=== PATIENT | male | born 1985 | race Two or more races ===

== ENCOUNTER → 2018-05-05 | Outpatient (REF) | payer OTHER ==
[~2018-05-05] MED LIST: SERT-1 PO
[2018-05-05 17:21] LABS: PLATELET COUNT, AUTOMATED 246 K/uL (150-450)
== END ==
PROVIDERS: ATTEND Nurse Practitioner Family
DX: R10.9 Unspecified abdominal pain (principal)
CPT/HCPCS: 82040; 82150; 82247; 82310; 82374; 82435; 82565; 82947; 83690; 84075; 84132; 84155; 84295; 84450; 84460; 84520; 85025

== ENCOUNTER 2018-08-14 15:51 | Inpatient (IN) | payer OTHER ==
[2018-05-06 11:21] VITALS: Ht 182.9 cm; Wt 90.3 kg
[~2018-08-14] VITALS: Ht 182.9 cm; Wt 90.3 kg
[~2018-08-14 15:51] MED LIST changes: +LOR5/325 PO
--- NOTE | 2018-08-14 15:53 | ER Report ---
History and Physical Time Seen By MD: 15:52 HPI/ROS CHIEF COMPLAINT: Mid epigastric abdominal pain HISTORY OF PRESENT ILLNESS: Patient is a 33-year-old male here with complaints of midepigastric abdominal pain, nausea, shakiness, lightheadedness starting this morning around breakfast time after eating Cheetos. Patient had his 1st episode of emesis while in the emergency department. 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 Patient does have significant tenderness on palpation of the midepigastrium. Patient has been passing normal bowel movements, denies fevers, chest pain, shortness breath. Upon further questioning, patient was unable to quantify how much alcohol he consumes however he does preferentially drink vodka regularly. Denies blood in the urine or stools. REVIEW OF SYSTEMS: Constitutional: No fever, no chills. Eyes: No discharge. ENT: No sore throat. Cardiovascular: No chest pain, no palpitations. Respiratory: No cough, no shortness of breath. Gastrointestinal: + Mid epigastric abdominal pain, no rigidity or significant distention, + nausea and one episode of vomiting. Genitourinary: No hematuria. Musculoskeletal: No back pain. Skin: No rashes. Neurological: No headache. Allergies: Coded Allergies: No Known Drug Allergies (Unverified , 05/05/18) Home Meds Reported Medications Sertraline Hcl (ZOLOFT) 50 Mg Tablet, 2 TAB PO QDAY, TAB 05/05/18 Hx Smoking: No Smoking Status: Light Tobacco Smoker Exposure to Second Hand Smoke?: No Hx Substance Use Disorder: No Hx Alcohol Use: Yes Constitutional Vital Sign - Last 24 Hours 08/14/18 16:01 Pulse 69 Resp 18 Pulse Ox 98 O2 Delivery Room Air Physical Exam General Appearance: The patient is alert, has no immediate need for airway protection and no signs of toxicity. Uncomfortable appearing, moderate distress secondary to pain and nausea Eyes: Pupils equal and round no pallor or injection. ENT, Mouth: Mucous membranes are moist. Respiratory: There are no retractions, lungs are clear to auscultation. Cardiovascular: Regular rate and rhythm. Gastrointestinal: Abdomen is soft and+ significantly tender on palpation of the midepigastrium, no masses, bowel sounds normal. Neurological: No focal neurological deficits on examination Skin: Warm and dry, no rashes. Musculoskeletal: Neck is supple non tender. Extremities are nontender, nonswollen and have full range of motion. DIFFERENTIAL DIAGNOSIS: After history and physical exam differential diagnosis was considered for abdominal pain including but not limited to appendicitis, cholecystitis, gastritis and urinary tract infection. Pancreatitis Medical Decision Making Data Points Result Diagram: 08/14/18 1615 08/14/18 1615 Laboratory Hematology Test 08/14/18 15:58 08/14/18 16:15 Urine Color Yellow Urine Clarity Clear Urine pH 6.0 pH (4.8-9.5) Urine Specific Fraser 1.011 Urine Protein Negative mg/dL (NEGATIVE) Urine Glucose (UA) Negative mg/dL (NEGATIVE) Urine Ketones Negative mg/dL (NEGATIVE) Urine Blood Negative (NEGATIVE) Urine Nitrite Negative (NEGATIVE) Urine Bilirubin Negative (NEGATIVE) Urine Urobilinogen Negative mg/dL (0.2-1.9) Urine Leukocyte Esterase Negative (NEGATIVE) Urine RBC None /HPF (0-2/HPF) Urine WBC <1 /HPF (0-5/HPF) Urine Squamous Epithelial Cells None /LPF (</=FEW) Urine Bacteria Negative /HPF (NONE-FEW) Urine Mucus None /HPF (NONE-FEW) Red Blood Count 5.68 M/uL (4.00-5.60) Mean Corpuscular Volume 89.1 fL (80.0-96.0) Mean Corpuscular Hemoglobin 31.3 pg (26.0-33.0) Mean Corpuscular Hemoglobin Concent 35.1 g/dL (32.0-36.0) Red Cell Distribution Width 14.1 % (11.5-14.5) Mean Platelet Volume 7.5 fL (7.2-11.1) Neutrophils (%) (Auto) 78.9 % (39.4-72.5) Lymphocytes (%) (Auto) 14.0 % (17.6-49.6) Monocytes (%) (Auto) 6.0 % (4.1-12.4) Eosinophils (%) (Auto) 0.4 % (0.4-6.7) Basophils (%) (Auto) 0.7 % (0.3-1.4) Nucleated RBC Relative Count (auto) 0.0 /100WBC Neutrophils # (Auto) 6.5 K/uL (2.0-7.4) Lymphocytes # (Auto) 1.1 K/uL (1.3-3.6) Monocytes # (Auto) 0.5 K/uL (0.3-1.0) Eosinophils # (Auto) 0.0 K/uL (0.0-0.5) Basophils # (Auto) 0.1 K/uL (0.0-0.1) Nucleated RBC Absolute Count (auto) 0.00 K/uL Sodium Level 139 mmol/L (137-145) Potassium Level 3.2 mmol/L (3.5-5.0) Chloride Level 105 mmol/L (98-107) Carbon Dioxide Level 21 mmol/L (22-30) Blood Urea Nitrogen 9 mg/dl (9-21) Creatinine 1.00 mg/dl (0.66-1.25) Glomerular Filtration Rate Calc > 60.0 Random Glucose 135 mg/dl (75-110) Lactate 4.0 mmol/L (0.7-2.1) Calcium Level 9.8 mg/dl (8.4-10.2) Total Bilirubin 0.9 mg/dl (0.2-1.3) Aspartate Amino Transf (AST/SGOT) 26 U/L (0-35) Alanine Aminotransferase (ALT/SGPT) 32 U/L (0-56) Alkaline Phosphatase 77 U/L (0-126) Total Protein 7.9 g/dl (6.3-8.2) Albumin 5.0 g/dl (3.5-5.0) Lipase 3535 U/L (23-300) Chemistry Test 08/14/18 15:58 08/14/18 16:15 Urine Color Yellow Urine Clarity Clear Urine pH 6.0 pH (4.8-9.5) Urine Specific Fraser 1.011 Urine Protein Negative mg/dL (NEGATIVE) Urine Glucose (UA) Negative mg/dL (NEGATIVE) Urine Ketones Negative mg/dL (NEGATIVE) Urine Blood Negative (NEGATIVE) Urine Nitrite Negative (NEGATIVE) Urine Bilirubin Negative (NEGATIVE) Urine Urobilinogen Negative mg/dL (0.2-1.9) Urine Leukocyte Esterase Negative (NEGATIVE) Urine RBC None /HPF (0-2/HPF) Urine WBC <1 /HPF (0-5/HPF) Urine Squamous Epithelial Cells None /LPF (</=FEW) Urine Bacteria Negative /HPF (NONE-FEW) Urine Mucus None /HPF (NONE-FEW) White Blood Count 8.2 k/uL (4.5-11.0) Red Blood Count 5.68 M/uL (4.00-5.60) Hemoglobin 17.8 g/dL (14.0-18.0) Hematocrit 50.6 % (42.0-52.0) Mean Corpuscular Volume 89.1 fL (80.0-96.0) Mean Corpuscular Hemoglobin 31.3 pg (26.0-33.0) Mean Corpuscular Hemoglobin Concent 35.1 g/dL (32.0-36.0) Red Cell Distribution Width 14.1 % (11.5-14.5) Platelet Count 324 K/uL (150-450) Mean Platelet Volume 7.5 fL (7.2-11.1) Neutrophils (%) (Auto) 78.9 % (39.4-72.5) Lymphocytes (%) (Auto) 14.0 % (17.6-49.6) Monocytes (%) (Auto) 6.0 % (4.1-12.4) Eosinophils (%) (Auto) 0.4 % (0.4-6.7) Basophils (%) (Auto) 0.7 % (0.3-1.4) Nucleated RBC Relative Count (auto) 0.0 /100WBC Neutrophils # (Auto) 6.5 K/uL (2.0-7.4) Lymphocytes # (Auto) 1.1 K/uL (1.3-3.6) Monocytes # (Auto) 0.5 K/uL (0.3-1.0) Eosinophils # (Auto) 0.0 K/uL (0.0-0.5) Basophils # (Auto) 0.1 K/uL (0.0-0.1) Nucleated RBC Absolute Count (auto) 0.00 K/uL Glomerular Filtration Rate Calc > 60.0 Lactate 4.0 mmol/L (0.7-2.1) Calcium Level 9.8 mg/dl (8.4-10.2) Total Bilirubin 0.9 mg/dl (0.2-1.3) Aspartate Amino Transf (AST/SGOT) 26 U/L (0-35) Alanine Aminotransferase (ALT/SGPT) 32 U/L (0-56) Alkaline Phosphatase 77 U/L (0-126) Total Protein 7.9 g/dl (6.3-8.2) Albumin 5.0 g/dl (3.5-5.0) Lipase 3535 U/L (23-300) Urinalysis Test 08/14/18 15:58 Urine Color Yellow Urine Clarity Clear Urine pH 6.0 pH (4.8-9.5) Urine Specific Fraser 1.011 Urine Protein Negative mg/dL (NEGATIVE) Urine Glucose (UA) Negative mg/dL (NEGATIVE) Urine Ketones Negative mg/dL (NEGATIVE) Urine Blood Negative (NEGATIVE) Urine Nitrite Negative (NEGATIVE) Urine Bilirubin Negative (NEGATIVE) Urine Urobilinogen Negative mg/dL (0.2-1.9) Urine Leukocyte Esterase Negative (NEGATIVE) Urine RBC None /HPF (0-2/HPF) Urine WBC <1 /HPF (0-5/HPF) Urine Squamous Epithelial Cells None /LPF (</=FEW) Urine Bacteria Negative /HPF (NONE-FEW) Urine Mucus None /HPF (NONE-FEW) EKG/Imaging Imaging PATIENT NAME: Bk Morales : 1985 MR: [id number] V: [id number] EXAM DATE: [id number] ORDERING PHYSICIAN: URSULA JEREZ TECHNOLOGIST: Location: [facility] - [place] Patient: Bk Morales : 1985 Visit/Account:[id number] Date of Sevice: 08/14/2018 CT ABDOMEN PELVIS W/ CON HISTORY: epigastric abd pain TECHNIQUE: CT abdomen and pelvis with intravenous contrast. One of the following dose optimization techniques was utilized in the p erformance of this exam: Automated exposure control; adjustment of the mA and/or kV according to the patient's size; or use of an iterative reconstruction technique. Specific details can be referenced in the facility's radiology CT exam operational policy. CONTRAST: 85 mL Isovue-370. COMPARISON: May 05, 2018. FINDINGS: Visualized lung bases: Negative. Hepatobiliary: Suggestion of hepatic steatosis. Otherwise negative. Spleen: Negative. Adrenals: Negative. Pancreas: Moderate peripancreatic inflammation. No definitive evidence for pancreatic necrosis. No focal fluid collections. No vascular complications identified. Kidneys/: Negative. GI: Mild chronic appearing fat attenuation within the colon which is likely related to remote infectious/inflammatory process. Otherwise negative. Appendix is unremarkable. No evidence for obstruction. Vessels/spaces/nodes: Negative. Bones/soft tissues: Negative. IMPRESSION: 1. Acute pancreatitis with moderate peripancreatic inflammation. No focal fluid collections or other complications of pancreatitis identified at this time. 2. Additional incidental/chronic findings, as above. ED Course/Re-evaluation ED Course Patient is a 33-year-old male here with complaints of midepigastric abdominal pain, nausea, emesis 1 episode, starting this morning around breakfast time af ter eating Cheetos. Patient does consume vodka regularly and has had prior episodes of alcohol-induced pancreatitis. CT imaging of the abdomen and pelvis was obtained and patient was given normal saline bolus, GI cocktail, fentanyl, Zofran. CT of the abdomen and pelvis showed inflammation and inflammatory changes around the pancreas but did not show signs of abscess, necrosis. Lipase came back at 3535, lactate was 4.0. Patient was given ketamine and Dilaudid and a repeat dose of Zofran for symptomatic management. Patient was given 2nd liter of normal saline for hydration. I discussed the patient with Dr. Hauser who evaluated the patient for inpatient admission. Patient remained hemodynamically stable throughout course. Decision to Disposition Date: Aug 14, 2018 Decision to Disposition Time: 17:28 Depart Departure Latest Vital Signs Vital Signs Date Time Temp Pulse Resp B/P (MAP) Pulse Ox O2 Delivery O2 Flow Rate FiO2 08/14/18 16:01 69 18 98 Room Air Impression: Primary Impression: Acute alcoholic pancreatitis Condition: Condition Unchanged Disposition: Admitted from ER URSULA JEREZ DO Aug 14, 2018 15:53
[2018-08-14] MEDS ORDERED: NS(*) 0.9% 1000 ML BAG 1,000 ML IV ONE ×2 (16:09→16:40)
[2018-08-14] MEDS ORDERED: fentaNYL CITR 100 MCG/2 ML AMP IVP ONE (16:10)
[2018-08-14] MEDS ORDERED: MAG HYD/AL HYD/SIMETH 30ML UDC PO ONE (16:10)
[2018-08-14] MEDS ORDERED: LIDOCAINE 2% VISC SLN 15ML UDC PO ONE (16:10)
[2018-08-14] MEDS ORDERED: ONDANSETRON 4 MG/2 ML VIAL IVP ONE ×2 (16:10→17:25)
[2018-08-14 16:27] LABS: PLATELET COUNT, AUTOMATED 324 K/uL (150-450)
[2018-08-14] MEDS ORDERED: IOPAMIDOL 76% 150 ML INFUS BTL 150 ML ONE (16:29)
[2018-08-14] MEDS ORDERED: KETAMINE HCL-NS 50 MG/5 ML SYR IVP ONE (16:50)
--- NOTE | 2018-08-14 17:03 | RADIOLOGY IMAGING REPORT ---
FACILITY: [facility] - [place] PATIENT NAME: Bk Morales : 1985 MR: [id number] V: [id number] EXAM DATE: ORDERING PHYSICIAN: URSULA JEREZ TECHNOLOGIST: Location: [facility] - [place] Patient: Bk Morales : 1985 Visit/Account:[id number] Date of Sevice: 08/14/2018 CT ABDOMEN PELVIS W/ CON HISTORY: epigastric abd pain TECHNIQUE: CT abdomen and pelvis with intravenous contrast. One of the following dose optimization techniques was utilized in the performance of this exam: Autom ated exposure control; adjustment of the mA and/or kV according to the patient's size; or use of an i terative reconstruction technique. Specific details can be referenced in the facility's radiology C T exam operational policy. CONTRAST: 85 mL Isovue-370. COMPARISON: May 05, 2018. FINDINGS: Visualized lung bases: Negative. Hepatobiliary: Suggestion of hepatic steatosis. Otherwise negative. Spleen: Negative. Adrenals: Negative. Pancreas: Moderate peripancreatic inflammation. No definitive evidence for pancreatic necrosis. No f ocal fluid collections. No vascular complications identified. Kidneys/: Negative. GI: Mild chronic appearing fat attenuation within the colon which is likely related to remote infect ious/inflammatory process. Otherwise negative. Appendix is unremarkable. No evidence for obstruction . Vessels/spaces/nodes: Negative. Bones/soft tissues: Negative. IMPRESSION: 1. Acute pancreatitis with moderate peripancreatic inflammation. No focal fluid collections or other complications of pancreatitis identified at this time. 2. Additional incidental/chronic findings, as above. Report Dictated By: León Alston MD at 08/14/2018 4:57 PM Report E-Signed By: León Alston MD at 08/14/2018 4:59 PM WSN:[id number]
[2018-08-14] MEDS ORDERED: HYDROMORPHONE HCL 1 MG/ML SYRINGE IVP ONE ×2 (17:20→18:35)
[2018-08-14] MEDS ORDERED: LORazepam 1 MG TAB PO PRN (18:00)
[2018-08-14] MEDS ORDERED: NALOXONE HCL 0.4 MG/ML VIAL IVP PRN (18:00)
[2018-08-14] MEDS ORDERED: LORazepam 2 MG/ML VIAL IVP PRN ×2 (18:00)
--- NOTE | 2018-08-14 18:23 | History & Physical ---
History of Present Illness History of Present Illness 33yo male with a h/o alcohol induced pancreatitis who came to the ER for abdominal pain and nausea. He was in his normal state of health until he woke up today. It was about noon. He felt a bit off. He ate some food and then developed sharp epigastric pain that ranged from 6-9/10. He also noted tingling in his face and cramping in his hands that possibly worsened with inflation of the BP cuff. He didn't vomit until coming to the ER. There was no blood or coffee ground substance. He denies f/c. He drinks about a half bottle of vodka a day. He denies seizures or DT's when he stops drinking. He was last in the hospital a couple months ago for a very similar presentation and had pancreatitis. He did not go through significant alcohol withdrawal then (i.e. no benzodiazepines used). He denies any prescription, OTC drugs, or supplements. He does chew tobacco. History Problems: (1) Alcohol use Status: Chronic (2) Depression Status: Chronic Home Meds Reported Medications Sertraline Hcl (ZOLOFT) 50 Mg Tablet, 2 TAB PO QDAY, TAB 05/05/18 Allergies: Coded Allergies: No Known Drug Allergies (Unverified , 05/05/18) Other Social/Family Hx He is a cook at the [employer]. Hx Smoking: No Smoking Status: Light Tobacco Smoker Exposure to Second Hand Smoke?: No Hx Alcohol Use: Yes ("TOO MUCH") Hx Substance Use Disorder: No Social Drug Use: Never Review of Systems All Systems Reviewed/Normal: Yes, Except as Noted Exam Vital Signs Vital Signs Date Time Temp Pulse Resp B/P (MAP) Pulse Ox O2 Delivery O2 Flow Rate FiO2 08/14/18 16:01 69 18 98 Room Air General Appearance: Alert, Awake, No Acute Distress Neuro: Other (Answers questions appropriately, but is a bit slow to answer sometimes) Eyes: PERRLA ENT: Moist Mucous Membranes Cardiovascular: Regular Rate and Rhythm Respiratory: Clear to Auscultation GI: Other (Soft, non-distended, epigastric pain with palpation.) Extremities: No Edema Integumentary: No Jaundice, No Cyanosis Medical Decision Making Data Points Result Diagram: 08/14/18 1615 08/14/18 1615 Item Value Date Time Lactate 4.0 mmol/L *H 08/14/18 1615 Aspartate Amino Transf (AST/SGOT) 26 U/L 08/14/18 1615 Total Bilirubin 0.9 mg/dl 08/14/18 1615 Alanine Aminotransferase (ALT/SGPT) 32 U/L 08/14/18 1615 Alkaline Phosphatase 77 U/L 08/14/18 1615 Lipase 3535 U/L H 08/14/18 1615 Neutrophils (%) (Auto) 78.9 % H 08/14/18 1615 Lymphocytes (%) (Auto) 14.0 % L 08/14/18 1615 Mean Corpuscular Volume 89.1 fL 08/14/18 1615 Urine RBC None /HPF 08/14/18 1558 Urine WBC <1 /HPF 08/14/18 1558 EKG / Imaging Imaging CT abd/pelvis - 1. Acute pancreatitis with moderate peripancreatic inflammation. No focal fluid collections or other complications of pancreatitis identified at this time. 2. Additional incidental/chronic findings, as above. Assessment and Plan Problems: (1) Acute alcoholic pancreatitis Status: Acute Assessment & Plan: He presented with a couple of hours of acute epigastric abdominal pain and nausea. His lipase is 3535 and has evidence of moderate pancreatic inflammation on CT. He will be made NPO hydrated, started on a morphine RAISE MINER, and given prn IV Toradol. Will follow lipase/liver tests/calcium (complained of symptoms consistent with low calcium, but calcium is normal). (2) Alcohol use Status: Chronic Assessment & Plan: He denies a h/o withdrawal seizures or DT's. He drinks 1/2 bottle of vodka/day. Seizure precautions implemented. CIWA protocol with IV Ativan started and prn Ativan ordered. Start IV thiamine and folate. (3) Hypokalemia Status: Acute Assessment & Plan: Mild. Replace. Follow. Check Mg. Venous Thromboembolism Antithrombotics Is Pt On Any Antithrombotics?: No Exam Sepsis Risk: No Definite Risk ALEXANDER WATERS MD Aug 14, 2018 18:23
[2018-08-14] MEDS ORDERED: PROMETHAZINE 25 MG/ML 1 ML AMP IVP ONE (18:35)
[2018-08-14] MEDS ORDERED: PCA LOCKBOX KEYS XX PRN (19:20)
[2018-08-14 19:30] VITALS: BP 128/68
[2018-08-14] MEDS: NS(*) 0.9% 1000 ML BAG 1,000 ML IV PRN (19:49)
[2018-08-14] MEDS: MORPHINE 1 MG/ML 30 ML PCA IV PRN (19:49)
[2018-08-14] MEDS: PANTOPRAZOLE SOD 40 MG IV VIAL IVP SCH (19:53)
[2018-08-14 20:00] VITALS: BP 143/95
[2018-08-14] MEDS: KCL (*) 20 MEQ/100 ML PREMIX 100 ML IV SCH ×2 (20:06→22:16)
[2018-08-14] MEDS: PROMETHAZINE 25 MG/ML 1 ML AMP IVP PRN (20:06)
[2018-08-14 20:30] VITALS: BP 149/96
[2018-08-14 21:00] VITALS: BP 137/93
[2018-08-14] MEDS: KETOROLAC 15 MG/ML VIAL IVP PRN (22:17)
[2018-08-15] VITALS (7 sets, daily range): BP systolic 127–153; BP diastolic 66–90
[2018-08-15] MEDS: MORPHINE 1 MG/ML 30 ML PCA IV PRN ×3 (02:30→21:55)
[2018-08-15] MEDS: NS(*) 0.9% 1000 ML BAG 1,000 ML IV PRN ×2 (05:53→16:17)
[2018-08-15 06:06] LABS: INR 1.05
[2018-08-15 06:15] LABS: PLATELET COUNT, AUTOMATED 261 K/uL (150-450)
[2018-08-15] MEDS ORDERED: FOLIC ACID 50 MG/10 ML 1ML INJ IV SCH (09:00)
[2018-08-15] MEDS: PANTOPRAZOLE SOD 40 MG IV VIAL IVP SCH (09:46)
[2018-08-15] MEDS: ENOXAPARIN 40 MG/0.4ML SYR SC SCH (09:48)
[2018-08-15] MEDS: THIAMINE HCL 200 MG/2 ML INJ IVP SCH (09:51)
[2018-08-15] MEDS: FOLIC ACID(*) 50 MG/10 ML INJ 1 MG in NS(*) 0.9% 50 ML BAG 50 ML IV SCH (09:53)
--- NOTE | 2018-08-15 10:28 | Hospitalist Progress Note ---
Subjective Progress Notes Subjective He was admitted with pancreatitis. 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 He has no nausea or vomiting since admission. His Lipase increased this morning. Patient Complains of: Cardiovascular: No: Chest Pain Respiratory: No: Shortness of Breath Gastrointestinal: No Nausea, No Vomiting Physical Exam Vital Signs Date Time Temp Pulse Resp B/P (MAP) Pulse Ox O2 Delivery O2 Flow Rate FiO2 08/15/18 09:17 88 Room Air 08/15/18 08:51 20 08/15/18 07:03 99.0 80 135/81 (99) 08/15/18 05:24 0.5 Intake and Output 08/15/18 07:00 Intake Total 1200 ml Balance 1200 ml Intake IV Total 1200 ml # Voids 1 General Appearance: Alert, Awake, No Acute Distress, Afebrile Neuro: No Gross deficits Cardiovascular: Regular Rate and Rhythm Respiratory: No Respiratory Distress, Clear to Auscultation GI: Other (pain to palpation of abdomen) Extremities: Warm, Perfused; No Edema Psych: Alert & Oriented X3, Appropriate Mood & Affect Result Diagram: 08/15/1836 08/15/1836 Assessment and Plan Problems: (1) Acute alcoholic pancreatitis Status: Acute Assessment & Plan: He presented with a couple of hours of acute epigastric abdominal pain and nausea. His lipase was 3535 upon admission and had evidence of moderate pancreatic inflammation on CT. He was made NPO hydrated, started on a morphine [employer] SUPERVISOR, and given prn IV Toradol. Lipase increased this morning. Continue current treatment plan. Recheck labs tomorrow morning. (2) Alcohol use Status: Chronic Assessment & Plan: He denies a h/o withdrawal seizures or DT's. He drinks 1/2 bottle of vodka/day. Seizure precautions implemented. CIWA protocol with IV Ativan started and prn Ativan ordered. Start IV thiamine and folate. Patient d enies alcohol counseling information at this time. (3) Hypokalemia Status: Acute Assessment & Plan: Mild. Replace. Follow. Magnesium normal. Exam Sepsis Risk: No Definite Risk MATTHIAS SERRA Aug 15, 2018 10:28
--- NOTE | 2018-08-15 15:16 | Medical Nutrition Therapy ---
Nutrition Anthropometrics Height (Inches): 72 Weight (Pounds): 196 Weight (Calculated Kilograms): 88.904 BMI: 26.9 Adarsh Nutrition Score: Very Poor Adarsh Nutrition Risk Score: 20 Dietary Referral Nutrition Risk Factors: Nutrition Risk Comment: Physical Findings Physical Appearance: Overweight BMI 25-29 Skin Appearance Skin Appearance: Edema Edema Location Modifier: Edema Location: Type of Edema: Degree of Edema: Gastrointestinal Symptoms GI Symtoms: Tube Present: Bowel Sounds: Recent Bowel Pattern: Stool Characteristics: Nutritional Diagnosis Nutritional Risk Acuity 2: Pancreatitis Nutritional Risk Acuity 3: Nausea Past Medical History: alcohol abuse, depression Nutritional Acuity: 2-Moderate Nutrition Diagnosis: Inadequate Food Intake Nutrition Etiology: Physiological Causes Nutrition Problem/Etiology/Sym: Inadequate food intake related to physiological causes as evidenced by current NPO diet, day 1. Energy Requirement: 2465 (MSJ, 1.1 TEF, 1.2 AF) Adjusted Energy Requirement Re: 2215 (-250kcal) Protein Requirement: 89 (1g AA/kg of BW) Fluid Requirement: 2215 (1ml/kcal) Diet Type: NPO (Nothing by Mouth) Nutrition Intervention: Incr diet as tolerated Diet Comment To RSA: 08/15: NPO day 1 Nutrition Monitoring & Eval Nutrition Monitorin/1: NPO day 1 RD Patient Assessment Time: [address] Assessment Type: RD Assessment Patient Nutrition Acuity: 2-Moderate Follow Up Date: Aug 18, 2018 Nutritional Comment: 08/15: Pt admitted for alcohol use, hypokalemia, and acute alcoholic pancreatitis. Pt has hx of alcohol use and depression. Pt has decreased total protein (6.2), potssium (3.2), CO2 (21) levels. Pt has elevated RBG (135), lactate (4.0), and lipase (4310-9367) levels. Pt is currently taking enoxaparin. No ht reported for pt at this time, energy needs calculated using past admission's height. Pt is on NPO diet day 1,continue to monitor. -ANDREW CALDERON Aug 15, 2018 08:53
[2018-08-15] MEDS: KETOROLAC 15 MG/ML VIAL IVP PRN (19:56)
[2018-08-16] MEDS: NS(*) 0.9% 1000 ML BAG 1,000 ML IV PRN (01:52)
[2018-08-16 03:15] VITALS: BP 126/71
[2018-08-16] MEDS: KETOROLAC 15 MG/ML VIAL IVP PRN ×2 (03:27→12:06)
[2018-08-16 06:00] LABS: PLATELET COUNT, AUTOMATED 193 K/uL (150-450)
[2018-08-16 06:57] VITALS: BP 127/74
[2018-08-16] MEDS: ENOXAPARIN 40 MG/0.4ML SYR SC SCH (09:32)
[2018-08-16] MEDS: FOLIC ACID(*) 50 MG/10 ML INJ 1 MG in NS(*) 0.9% 50 ML BAG 50 ML IV SCH (09:32)
[2018-08-16] MEDS: PANTOPRAZOLE SOD 40 MG IV VIAL IVP SCH (09:32)
[2018-08-16] MEDS: THIAMINE HCL 200 MG/2 ML INJ IVP SCH (09:33)
[2018-08-16] MEDS: D5NS(*) 1000 ML BAG 1,000 ML IV PRN ×2 (10:00→20:50)
[2018-08-16 11:03] VITALS: BP 134/79
--- NOTE | 2018-08-16 11:08 | Hospitalist Progress Note ---
Subjective Progress Notes Subjective He has complaints of abdominal pain. Denies N/V. Patient Complains of: Cardiovascular: No: Chest Pain Respiratory: No: Shortness of Breath Physical Exam Vital Signs Date Time Temp Pulse Resp B/P (MAP) Pulse Ox O2 Delivery O2 Flow Rate FiO2 08/16/18 09:43 24 94 08/16/18 07:35 Room Air 08/16/18 06:57 99.1 77 127/74 (91) 08/16/18 03:15 0.5 Intake and Output 08/16/18 07:00 Intake Total 1000 ml Balance 1000 ml Intake IV Total 1000 ml # Voids 2 General Appearance: Alert, Awake, No Acute Distress, Afebrile Neuro: No Gross deficits Cardiovascular: Regular Rate and Rhythm Respiratory: No Respiratory Distress, Clear to Auscultation GI: Other (pain to palpation, abdomen slightly distended) Psych: Alert & Oriented X3, Appropriate Mood & Affect Result Diagram: 08/16/18 0537 08/16/1837 Assessment and Plan Problems: (1) Acute alcoholic pancreatitis Status: Acute Assessment & Plan: He presented with a couple of hours of acute epigastric abdominal pain and nausea. His lipase was 3535 upon admission and had evidence of moderate pancreatic inflammation on CT. 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 Lipase decreased this morning, but has continued pain. Continue current treatment plan. Recheck labs tomorrow morning. Will switch to D5NS to help with decreased glucose levels. (2) Alcohol use Status: Chronic Assessment & Plan: He denies a h/o withdrawal seizures or DT's. He drinks 1/2 bottle of vodka/day. Seizure precautions implemented. CIWA protocol with IV Ativan started and prn Ativan ordered. Start IV thiamine and folate. Patient denies alcohol counseling information at this time. (3) Hypokalemia Status: Acute Assessment & Plan: Mild. Replace. Follow. Magnesium normal. Exam Sepsis Risk: No Definite Risk MATTHIAS SERRA ASSISTANT SUPERINTENDENT Aug 16, 2018 11:08
[2018-08-16] MEDS: MORPHINE 1 MG/ML 30 ML PCA IV PRN (14:32)
[2018-08-16 14:34] VITALS: BP 127/79
[2018-08-16 18:57] VITALS: BP 141/91
[2018-08-16 23:02] VITALS: BP 139/90
[2018-08-17] MEDS: MORPHINE 1 MG/ML 30 ML PCA IV PRN (02:02)
[2018-08-17 03:00] VITALS: BP 143/89
[2018-08-17] MEDS: PROMETHAZINE 25 MG/ML 1 ML AMP IVP PRN (04:07)
[2018-08-17 05:54] LABS: PLATELET COUNT, AUTOMATED 171 K/uL (150-450)
[2018-08-17] MEDS: D5NS(*) 1000 ML BAG 1,000 ML IV PRN (06:23)
[2018-08-17 07:14] VITALS: BP 142/88
[2018-08-17] MEDS ORDERED: APAP/HYDROCODONE 325/5 TAB PO PRN (07:55)
[2018-08-17] MEDS: THIAMINE HCL 200 MG/2 ML INJ IVP SCH (09:27)
[2018-08-17] MEDS: PANTOPRAZOLE SOD 40 MG IV VIAL IVP SCH (09:27)
[2018-08-17] MEDS: ENOXAPARIN 40 MG/0.4ML SYR SC SCH (09:28)
[2018-08-17] MEDS: FOLIC ACID(*) 50 MG/10 ML INJ 1 MG in NS(*) 0.9% 50 ML BAG 50 ML IV SCH (09:28)
[2018-08-17] MEDS ORDERED: ONDA4TAB9 PO (12:43)
[2018-08-17] MEDS ORDERED: LOR5/325 PO (12:43)
--- NOTE | 2018-08-17 12:47 | Hospitalist Depart ---
Discharge Summary Reason for Hosp/Final Diag: (1) Acute alcoholic pancreatitis Status: Acute Hospital Course & Plan: He presented with a couple of hours of acute epigastric abdominal pain and nausea. His lipase was 3535 upon admission and had evidence of moderate pancreatic inflammation on CT. He was made NPO hydrated, started on a morphine [employer]IC, and given prn IV Toradol. Lipase decreased this morning to 565, and he denies pain to abdomen. He was transitioned to oral pain medication and has been able to tolerate clear liquid diet. Patient wants to go home at this time and feels he will be successful. He does not wish to stay another night in hospital. He was educated to eat only low fat diet and abstain from alcohol to be successful. (2) Alcohol use Status: Chronic Hospital Course & Plan: He denies a h/o withdrawal seizures or DT's. He drinks 1/2 bottle of vodka/day. Seizure precautions implemented. CIWA protocol with IV Ativan started and prn Ativan ordered. Start IV thiamine and folate. Patient denies alcohol counseling information at this time. He did not require any withdraw medications. (3) Hypokalemia Status: Acute Hospital Course & Plan: Mild. Replaced. Magnesium normal. Departure Latest Vital Signs Vital Signs 08/17/18 08/17/18 08/17/18 02:02 03:00 07:14 Temp 98.6 Pulse 79 Resp 16 B/P (MAP) 142/88 (106) Pulse Ox 90 O2 Delivery Nasal Cannula O2 Flow Rate 0.5 Weight (Pounds): 199 Weight (Ounces): 2.0 Result Diagram: 08/17/18 0513 08/17/18512 Condition: Improved Discharge: Home, Self Care Discharge Instructions Home Meds Active Scripts Ondansetron 4 Mg Odt (ONDANSETRON 4 MG ODT) 4 Mg Tab.rapdis, 4 MG PO Q6H PRN for NAUSEA, #12 TAB Prov:MATTHIAS SERRA MANAGER PARTY 08/17/18 Hydrocodone Bit/Acetaminophen (HYDROCODON-ACETAMINOPHEN 5-325) 1 Each Tablet, 1 EACH PO Q4H PRN for PAIN, #12 TAB Prov:MATTHIAS SERRA MANAGER [employer]Y 08/17/18 Reported Medications Sertraline Hcl (ZOLOFT) 50 Mg Tablet, 2 TAB PO QDAY, TAB 05/05/18 Diet: Low Fat Activity: As Tolerated Special Instructions: Use Zofran and Lortab only as needed. Follow up in one week with Primary Care Provider. Eat low fat foods. Do not drink alcohol. Copies to: MARYELLEN WONG PA-C ; Venous Thromboembolism Antithrombotics Is Pt On Any Antithrombotics?: No MATTHIAS SERRAP Aug 17, 2018 12:47
== END 2018-08-17 13:15 | disposition home or self-care (01) | DRG 439 ==
LOC: ER 16:10 → MED 18:20
PROVIDERS: ADMIT Internal Medicine; ATTEND Internal Medicine
DX: K85.20 Alcohol induced acute pancreatitis without necrosis or infection (principal); F10.288 Alcohol dependence with other alcohol-induced disorder; F17.210 Nicotine dependence, cigarettes, uncomplicated; E87.6 Hypokalemia; F32.9 Major depressive disorder, single episode, unspecified
CPT/HCPCS: 36415; 36416; 74177; 81001; 82040; 82247; 82310; 82374; 82435; 82565; 82947; 82948; 83605; 83690; 83735; 84075; 84132; 84155; 84295; 84450; 84460; 84520; 85025; 85610; 96361; 96374; 96375; 96376; 99285; C9113; J1170; J1650; J1885; J2060; J2270; J2405; J2550; J3010; J3411; J3480; J3490; J7030; J7042; J7050; Q9967

== ENCOUNTER 2018-10-11 20:34 | Emergency (ER) | payer OTHER ==
[2018-05-06 11:21] VITALS: Wt 83.9 kg
[~2018-10-11 20:34] MED LIST changes: +ONDA4TAB9 PO
[2018-10-11 21:21] VITALS: BP 136/89
[2018-10-11] MEDS ORDERED: NS(*) 0.9% 1000 ML BAG 1,000 ML IV ONE (21:25)
[2018-10-11] MEDS ORDERED: ONDANSETRON 4 MG/2 ML VIAL IVP ONE (21:25)
[2018-10-11] MEDS ORDERED: fentaNYL CITR 100 MCG/2 ML AMP IVP ONE (21:35)
[2018-10-11 21:42] LABS: PLATELET COUNT, AUTOMATED 271 K/uL (150-450)
[2018-10-11 21:47] LABS: INR 0.97
--- NOTE | 2018-10-11 22:51 | ER Report ---
History and Physical Time Seen By MD: 22:51 Hx. of Stated Complaint: PATIENT STARTED HAVING ABDOMINAL PAIN, PATIENT HAVING NAUSEA WELL, HX OF PANCREATITIS, FEELS LIKE PANCREATITIS. HPI/ROS CHIEF COMPLAINT: Epigastric abdominal pain HISTORY OF PRESENT ILLNESS: Patient is a 33-year-old male here with complaints of recurrent abdominal pain history of pancreatitis with associated nausea without vomiting. Patient reports that his current episode is less severe than prior and that he was drinking alcohol over the weekend which likely precipitated his current symptoms. Patient has been able to keep down small amounts of fluids however has minimal appetite at this time. Denies blood in the stools or urine. Patient is afebrile hemodynamically stable at time of evaluation. REVIEW OF SYSTEMS: Constitutional: No fever, no chills. Eyes: No discharge. ENT: No sore throat. Cardiovascular: No chest pain, no palpitations. Respiratory: No cough, no shortness of breath. Gastrointestinal: + epigastric abdominal pain, no vomiting, + nausea Genitourinary: No hematuria. Musculoskeletal: No back pain. Skin: No rashes. Neurological: No headache. Allergies: Coded Allergies: No Known Drug Allergies (Unverified , 10/11/18) Home Meds Discontinued Reported Medications Sertraline Hcl (ZOLOFT) 50 Mg Tablet, 2 TAB PO QDAY, TAB 05/05/18 Discontinued Scripts Ondansetron 4 Mg Odt (ONDANSETRON 4 MG ODT) 4 Mg Tab.rapdis, 4 MG PO Q6H PRN for NAUSEA, #12 TAB Prov:MATTHIAS SERRA STOREROOM CLERK 08/17/18 Hydrocodone Bit/Acetaminophen (HYDROCODON-ACETAMINOPHEN 5-325) 1 Each Tablet, 1 EACH PO Q4H PRN for PAIN, #12 TAB Prov:MATTHIAS SERRA STOREROOM CLERK 08/17/18 Hx Smoking: Yes Smoking Status: Light Tobacco Smoker Exposure to Second Hand Smoke?: No Hx Substance Use Disorder: No (marijuana daily ) Hx Alcohol Use: Yes Constitutional Vital Sign - Last 24 Hours 10/11/18 10/11/18 20:39 21:21 Temp 97.8 Pulse 54 50 Resp 16 16 B/P (MAP) 132/118 136/89 (105) Pulse Ox 97 O2 Delivery Room Air Room Air O2 Flow Rate 96 Intake and Output 10/11/18 10/11/18 10/12/18 15:00 23:00 07:00 Intake Total 1000 ml Balance 1000 ml Physical Exam General Appearance: The patient is alert, has no immediate need for airway protection and no signs of toxicity. Uncomfortable appearing Eyes: Pupils equal and round no pallor or injection. ENT, Mouth: Mucous membranes are moist. Respiratory: There are no retractions, lungs are clear to auscultation. Cardiovascular: Regular rate and rhythm. Gastrointestinal: + tender on palpation of mid epigastrium, non distended, no rebound or guarding Neurological: No focal neuro deficits Skin: Warm and dry, no rashes. Musculoskeletal: Neck is supple non tender. Extremities are nontender, nonswollen and have full range of motion. DIFFERENTIAL DIAGNOSIS: After history and physical exam differential diagnosis was considered for abdominal pain including but not limited to appendicitis, cholecystitis, gastritis and urinary tract infection. Pancreatitis Medical Decision Making Data Points Result Diagram: 10/11/18212410/11/182124 Laboratory Hematology Test 10/11/18 21:18 10/11/18 21:25 Urine Color Yellow Urine Clarity Slightly-cloudy Urine pH 5.0 pH (4.8-9.5) Urine Specific [place] 1.027 Urine Protein Negative mg/dL (NEGATIVE) Urine Glucose (UA) Negative mg/dL (NEGATIVE) Urine Ketones 80 mg/dL (NEGATIVE) Urine Blood Negative (NEGATIVE) Urine Nitrite Negative (NEGATIVE) Urine Bilirubin Negative (NEGATIVE) Urine Urobilinogen 4.0 mg/dL (0.2-1.9) Urine Leukocyte Esterase Negative (NEGATIVE) Urine RBC 1 /HPF (0-2/HPF) Urine WBC 1 /HPF (0-5/HPF) Urine Squamous Epithelial Cells None /LPF (</=FEW) Urine Bacteria Negative /HPF (NONE-FEW) Urine Mucus Few /HPF (NONE-FEW) Red Blood Count 5.49 M/uL (4.00-5.60) Mean Corpuscular Volume 88.9 fL (80.0-96.0) Mean Corpuscular Hemoglobin 30.7 pg (26.0-33.0) Mean Corpuscular Hemoglobin Concent 34.6 g/dL (32.0-36.0) Red Cell Distribution Width 13.6 % (11.5-14.5) Mean Platelet Volume 8.0 fL (7.2-11.1) Neutrophils (%) (Auto) 84.9 % (39.4-72.5) Lymphocytes (%) (Auto) 7.9 % (17.6-49.6) Monocytes (%) (Auto) 4.5 % (4.1-12.4) Eosinophils (%) (Auto) 1.4 % (0.4-6.7) Basophils (%) (Auto) 1.3 % (0.3-1.4) Nucleated RBC Relative Count (auto) 0.0 /100WBC Neutrophils # (Auto) 7.1 K/uL (2.0-7.4) Lymphocytes # (Auto) 0.7 K/uL (1.3-3.6) Monocytes # (Auto) 0.4 K/uL (0.3-1.0) Eosinophils # (Auto) 0.1 K/uL (0.0-0.5) Basophils # (Auto) 0.1 K/uL (0.0-0.1) Nucleated RBC Absolute Count (auto) 0.00 K/uL Prothrombin Time 12.9 seconds (12.0-14.4) Prothromb Time International Ratio 0.97 Activated Partial Thromboplast Time 31 seconds (23-35) Sodium Level 143 mmol/L (137-145) Potassium Level 4.1 mmol/L (3.5-5.0) Chloride Level 104 mmol/L (98-107) Carbon Dioxide Level 21 mmol/L (22-30) Blood Urea Nitrogen 13 mg/dl (9-21) Creatinine 0.90 mg/dl (0.66-1.25) Glomerular Filtration Rate Calc > 60.0 Random Glucose 78 mg/dl (75-110) Lactate 1.2 mmol/L (0.7-2.1) Calcium Level 9.9 mg/dl (8.4-10.2) Total Bilirubin 2.1 mg/dl (0.2-1.3) Aspartate Amino Transf (AST/SGOT) 20 U/L (0-35) Alanine Aminotransferase (ALT/SGPT) 29 U/L (0-56) Alkaline Phosphatase 69 U/L (0-126) Total Protein 8.3 g/dl (6.3-8.2) Albumin 5.2 g/dl (3.5-5.0) Lipase 1653 U/L (23-300) Chemistry Test 10/11/18 21:18 10/11/18 21:25 Urine Color Yellow Urine Clarity Slightly-cloudy Urine pH 5.0 pH (4.8-9.5) Urine Specific [place] 1.027 Urine Protein Negative mg/dL (NEGATIVE) Urine Glucose (UA) Negative mg/dL (NEGATIVE) Urine Ketones 80 mg/dL (NEGATIVE) Urine Blood Negative (NEGATIVE) Urine Nitrite Negative (NEGATIVE) Urine Bilirubin Negative (NEGATIVE) Urine Urobilinogen 4.0 mg/dL (0.2-1.9) Urine Leukocyte Esterase Negative (NEGATIVE) Urine RBC 1 /HPF (0-2/HPF) Urine WBC 1 /HPF (0-5/HPF) Urine Squamous Epithelial Cells None /LPF (</=FEW) Urine Bacteria Negative /HPF (NONE-FEW) Urine Mucus Few /HPF (NONE-FEW) White Blood Count 8.4 k/uL (4.5-11.0) Red Blood Count 5.49 M/uL (4.00-5.60) Hemoglobin 16.9 g/dL (14.0-18.0) Hematocrit 48.8 % (42.0-52.0) Mean Corpuscular Volume 88.9 fL (80.0-96.0) Mean Corpuscular Hemoglobin 30.7 pg (26.0-33.0) Mean Corpuscular Hemoglobin Concent 34.6 g/dL (32.0-36.0) Red Cell Distribution Width 13.6 % (11.5-14.5) Platelet Count 271 K/uL (150-450) Mean Platelet Volume 8.0 fL (7.2-11.1) Neutrophils (%) (Auto) 84.9 % (39.4-72.5) Lymphocytes (%) (Auto) 7.9 % (17.6-49.6) Monocytes (%) (Auto) 4.5 % (4.1-12.4) Eosinophils (%) (Auto) 1.4 % (0.4-6.7) Basophils (%) (Auto) 1.3 % (0.3-1.4) Nucleated RBC Relative Count (auto) 0.0 /100WBC Neutrophils # (Auto) 7.1 K/uL (2.0-7.4) Lymphocytes # (Auto) 0.7 K/uL (1.3-3.6) Monocytes # (Auto) 0.4 K/uL (0.3-1.0) Eosinophils # (Auto) 0.1 K/uL (0.0-0.5) Basophils # (Auto) 0.1 K/uL (0.0-0.1) Nucleated RBC Absolute Count (auto) 0.00 K/uL Prothrombin Time 12.9 seconds (12.0-14.4) Prothromb Time International Ratio 0.97 Activated Partial Thromboplast Time 31 seconds (23-35) Glomerular Filtration Rate Calc > 60.0 Lactate 1.2 mmol/L (0.7-2.1) Calcium Level 9.9 mg/dl (8.4-10.2) Total Bilirubin 2.1 mg/dl (0.2-1.3) Aspartate Amino Transf (AST/SGOT) 20 U/L (0-35) Alanine Aminotransferase (ALT/SGPT) 29 U/L (0-56) Alkaline Phosphatase 69 U/L (0-126) Total Protein 8.3 g/dl (6.3-8.2) Albumin 5.2 g/dl (3.5-5.0) Lipase 1653 U/L (23-300) Coagulation Test 10/11/18 21:25 Prothrombin Time 12.9 seconds Prothromb Time International Ratio 0.97 Activated Partial Thromboplast Time 31 seconds Urinalysis Test 10/11/18 21:18 Urine Color Yellow Urine Clarity Slightly-cloudy Urine pH 5.0 pH (4.8-9.5) Urine Specific [place] 1.027 Urine Protein Negative mg/dL (NEGATIVE) Urine Glucose (UA) Negative mg/dL (NEGATIVE) Urine Ketones 80 mg/dL (NEGATIVE) Urine Blood Negative (NEGATIVE) Urine Nitrite Negative (NEGATIVE) Urine Bilirubin Negative (NEGATIVE) Urine Urobilinogen 4.0 mg/dL (0.2-1.9) Urine Leukocyte Esterase Negative (NEGATIVE) Urine RBC 1 /HPF (0-2/HPF) Urine WBC 1 /HPF (0-5/HPF) Urine Squamous Epithelial Cells None /LPF (</=FEW) Urine Bacteria Negative /HPF (NONE-FEW) Urine Mucus Few /HPF (NONE-FEW) ED Course/Re-evaluation ED Course Patient is a 33-year-old male here with complaints of recurrent abdominal pain consistent with pancreatitis. Lipase was markedly elevated. Patient's labs were otherwise unremarkable. Patient declined CT imaging. Patient was given fluid rehydration, Zofran, analgesia with moderate relief of symptoms. I discussed the findings with the patient and he voiced understanding. Patient was sent home with Zofran prescription. Close PCP follow-up recommended. Return precautions were provided. Decision to Disposition Date: October 11, 2018 Decision to Disposition Time: 22:51 Depart Departure Latest Vital Signs Vital Signs Date Time Temp Pulse Resp B/P (MAP) Pulse Ox O2 Delivery O2 Flow Rate FiO2 10/11/18 21:21 97.8 50 16 136/89 (105) Room Air 96 10/11/18 20:39 97 Impression: Primary Impression: Acute pancreatitis Condition: Improved Disposition: HOME OR SELF-CARE Referrals: MARYELLEN WONG PA-C (PCP) New Scripts No Active Prescriptions or Reported Meds Patient Instructions: Pancreatitis (ED) Additional Instructions: Please drink plenty of water. Please consider alcohol cessation. You may take 1 Zofran every 4-6 hours as needed for nausea control. You may take 1 tramadol as needed every 6-8 hours as needed for pain control. Please return promptly if he cannot tolerate oral intake, noticed blood in your stools or urine, worsening abdominal pain. URSULA JEREZ DO October 11, 2018 22:51
[2018-10-11] MEDS ORDERED: oxyCODONE/ACETAMIN 5/325MG TH 2 TAB/BOTTLE PO ONE (22:55)
[2018-10-11] MEDS ORDERED: ONDANSETRON 4 MG ODT TH ONE (23:10)
== END 2018-10-11 23:12 | disposition home or self-care (01) ==
LOC: ER 21:24
DX: K85.90 Acute pancreatitis without necrosis or infection, unspecified (principal)
CPT/HCPCS: 81001; 83605; 83690; 85025; 85610; 85730; 96361; 96374; 96375; 99284; J2405; J3010; J7030; S0119; 82040; 82247; 82310; 82374; 82435; 82565; 82947; 84075; 84132; 84155; 84295; 84450; 84460; 84520